=== PATIENT | female | born 1995 | race Caucasian/White ===

== ENCOUNTER → 2018-06-18 | Outpatient (CLI) | payer OTHER | LOC: LAB 08:55 | PROVIDERS: ATTEND Nurse Practitioner Family | DX: R10.9 Unspecified abdominal pain (principal); K52.29 Other allergic and dietetic gastroenteritis and colitis; Z91.018 Allergy to other foods; K90.49 Malabsorption due to intolerance, not elsewhere classified; R11.2 Nausea with vomiting, unspecified | CPT/HCPCS: 36415; 82040; 82150; 82247; 82310; 82374; 82435; 82565; 82947; 83690; 84075; 84132; 84155; 84295; 84450; 84460; 84520; 86003 ==